=== PATIENT | male | born 1955 | race Caucasian/White ===

== ENCOUNTER 2024-06-14 16:32 | Inpatient (IN) | payer MEDICARE ==
[~2024-06-14] VITALS: Ht 180.3 cm; Wt 96.6 kg
[2024-06-14] MEDS ORDERED: DOCUSATE SODIUM 283 MG/5 ML MINI-ENEMA PR PRN (20:00)
[2024-06-14] MEDS ORDERED: DEXTROSE 50%-WATER 25 GM/50 ML SYRINGE IVP PRN (20:30)
[2024-06-14] MEDS ORDERED: INSULIN LISPRO 100 UNITS/ML SQ PRN (20:30)
[2024-06-14 21:00] VITALS: BP 156/85; PULSE 78; RESP 19; TEMP 98.3; O2SAT 93; O2SAT 98
[2024-06-14] MEDS: DOCUSATE SODIUM 100 MG CAPSULE PO SCH (21:02)
[2024-06-14] MEDS: ATORVASTATIN CALCIUM 40 MG TABLET PO SCH (21:02)
[2024-06-14] MEDS: SENNOSIDES 8.6 MG TABLET PO SCH (21:02)
[2024-06-14] MEDS: TAMSULOSIN HCL 0.4 MG CAPSULE PO SCH (21:03)
[2024-06-14] MEDS: ACETAMINOPHEN 325 MG TABLET PO PRN (21:03)
[2024-06-14 22:03] VITALS: BP 136/81; PULSE 72
[2024-06-14 22:30] LABS: GLUCOMETER DEV NAME(LOC) 2WR.2B; GLUCOSE,POINT OF CARE 98 MG/DL (70-110)
[2024-06-15 06:41] LABS: GLUCOMETER DEV NAME(LOC) 2WR.1D; GLUCOSE,POINT OF CARE 135 MG/DL (70-110)
[2024-06-15] MEDS: ETHYL ALCOHOL 62% ANTISEPTIC NASAL SANITIZER 0.6 ML AMPUL NASAL SCH (07:32)
[2024-06-15] MEDS: EZETIMIBE 10 MG TABLET PO SCH (07:32)
[2024-06-15] MEDS: SitaGLIPtin PHOSPHATE 100 MG TABLET PO SCH (07:33)
[2024-06-15] MEDS: ENOXAPARIN SODIUM 40 MG/0.4 ML PF SYRINGE SQ SCH (07:33)
[2024-06-15] MEDS: ASPIRIN 81 MG CHEWABLE TABLET PO SCH (07:33)
[2024-06-15 08:05] VITALS: BP 147/79; PULSE 72; RESP 18; TEMP 97.6
[2024-06-15 10:25] LABS: BASOPHILS % (AUTO) 0.7 % (0.0-2.0); EOSINOPHILS % (AUTO) 0.9 % (1.0-6.0); HEMATOCRIT 43.5 % (41-53); HEMOGLOBIN 14.7 g/dL (13.5-17.5); LYMPHOCYTES # (AUTO) 1.7 K/uL (1.0-4.8); LYMPHOCYTES % (AUTO) 16.7 % (22.0-44.0); MEAN CORPUSCULAR HEMOGLOBIN 27.2 pg (26.0-34.0); MEAN CORPUSCULAR HGB CONC 33.7 G/dL (31.0-37.0); MEAN CORPUSCULAR VOLUME 81 fL (80-100); MONOCYTES % (AUTO) 9.3 % (2.0-9.0); NEUTROPHILS # (AUTO) 7.5 K/uL (1.8-7.7); NEUTROPHILS % (AUTO) 72.4 % (40.0-70.0); PLATELET COUNT (AUTO) 260 K/uL (150-450); RED BLOOD CELL COUNT(AUTO) 5.38 MIL/uL (4.50-5.90); RED CELL DISTRIBUTION WIDTH 16.5 % (11.5-14.5); WHITE BLOOD COUNT (AUTO) 10.4 K/uL (4.5-11.0)
[2024-06-15 10:50] LABS: ALANINE AMINOTRANSFERASE 33 U/L (12-78); ALBUMIN 3.9 g/dL (3.4-5.0); ALKALINE PHOSPHATASE 64 U/L (46-116); ANION GAP 10 mmol/L (8-16); ASPARTATE AMINOTRANSFERASE 19 U/L (15-37); BILIRUBIN,TOTAL 0.6 mg/dL (0.1-1.0); CALCIUM, TOTAL 8.7 mg/dL (8.8-10.5); CARBON DIOXIDE 26 mmol/L (22-29); CHLORIDE 100 mmol/L (98-107); CREATININE 1.14 mg/dL (0.60-1.30); GLOMERULAR FILTR. RATE CALC > 60 mL/min (>60); GLUCOSE,RANDOM 117 mg/dL (70-110); POTASSIUM 4.3 mmol/L (3.5-5.1); SODIUM SERUM 136 mmol/L (136-145); TOTAL PROTEIN, SERUM 7.4 g/dL (6.4-8.2); UREA NITROGEN, BLOOD 19 mg/dL (7-18)
[2024-06-15 11:00] VITALS: BP 136/73; PULSE 80; RESP 18; TEMP 98.2
[2024-06-15 11:40] VITALS: O2SAT 98
[2024-06-15 17:15] LABS: GLUCOMETER DEV NAME(LOC) 2WR.2B; GLUCOSE,POINT OF CARE 105 MG/DL (70-110)
[2024-06-15 19:58] VITALS: BP 148/78; PULSE 73; RESP 18; TEMP 97.9; O2SAT 95
[2024-06-15] MEDS: MELATONIN 3 MG TABLET PO PRN (20:04)
[2024-06-15 22:48] VITALS: O2SAT 95
[2024-06-16 07:26] LABS: GLUCOMETER DEV NAME(LOC) 2WR.2B; GLUCOSE,POINT OF CARE 117 MG/DL (70-110)
[2024-06-16 08:05] VITALS: BP 133/70; PULSE 78; RESP 18; TEMP 98.2; O2SAT 98
[2024-06-16 08:37] VITALS: O2SAT 98
[2024-06-16 11:00] VITALS: BP 138/74; PULSE 80; RESP 18; TEMP 98; O2SAT 97
[2024-06-16 16:10] LABS: GLUCOMETER DEV NAME(LOC) 2WR.2B; GLUCOSE,POINT OF CARE 109 MG/DL (70-110)
[2024-06-16 20:38] VITALS: BP 154/82; PULSE 66; RESP 18; TEMP 97.5; O2SAT 96
[2024-06-16 21:23] VITALS: O2SAT 96
[2024-06-17 07:40] LABS: GLUCOMETER DEV NAME(LOC) 2WR.1D; GLUCOSE,POINT OF CARE 109 MG/DL (70-110)
[2024-06-17 08:05] VITALS: BP 126/71; PULSE 76; RESP 18; TEMP 98.2; O2SAT 98
[2024-06-17 09:36] VITALS: O2SAT 98
[2024-06-17 11:30] VITALS: BP 130/72; PULSE 70; RESP 18; TEMP 98; O2SAT 98
[2024-06-17] MEDS ORDERED: SENN-376 PO (16:54)
[2024-06-17] MEDS ORDERED: TAMS0.4C94 PO (16:54)
[2024-06-17] MEDS ORDERED: SITA100 PO (16:54)
[2024-06-17 17:06] LABS: GLUCOMETER DEV NAME(LOC) 2WR.1D; GLUCOSE,POINT OF CARE 110 MG/DL (70-110)
[2024-06-17 20:00] VITALS: BP 137/79; PULSE 73; RESP 19; TEMP 97.2; O2SAT 98
[2024-06-18 07:16] LABS: GLUCOMETER DEV NAME(LOC) 2WR.1D; GLUCOSE,POINT OF CARE 119 MG/DL (70-110)
[2024-06-18 08:30] VITALS: BP 134/84; PULSE 74; RESP 18; TEMP 97.9; O2SAT 96
[2024-06-18 11:45] VITALS: O2SAT 96
[2024-06-18 17:41] LABS: GLUCOMETER DEV NAME(LOC) 2WR.1D; GLUCOSE,POINT OF CARE 101 MG/DL (70-110)
[2024-06-18 20:00] VITALS: BP 144/71; PULSE 76; RESP 20; TEMP 98; O2SAT 98
[2024-06-19] MEDS: PNEUMOCOCCAL VACCINE POLYVALENT 0.5 ML SYRINGE [PPSV23] IM. ONE (07:07)
[2024-06-19 08:01] VITALS: BP 139/59; PULSE 76; RESP 19; TEMP 97.5; O2SAT 99
[2024-06-19 20:33] VITALS: BP 141/73; PULSE 81; RESP 18; TEMP 97.7; O2SAT 98
[2024-06-19 20:36] VITALS: O2SAT 98
[2024-06-20 08:05] VITALS: BP 134/72; PULSE 74; RESP 18; TEMP 98.1; O2SAT 98
[2024-06-20 09:15] VITALS: O2SAT 98
[2024-06-20 20:57] VITALS: BP 146/66; PULSE 69; RESP 18; TEMP 98.8; O2SAT 98
[2024-06-20 20:58] VITALS: O2SAT 98
[2024-06-21 08:00] VITALS: BP 129/67; PULSE 69; RESP 18; TEMP 97.9; O2SAT 97
[2024-06-21] MEDS: AmLODIPine BESYLATE 2.5 MG TABLET PO SCH (11:03)
[2024-06-21 20:00] VITALS: BP 154/77; PULSE 71; RESP 19; TEMP 97.6; O2SAT 98
[2024-06-22 08:30] VITALS: BP 141/68; PULSE 67; RESP 19; TEMP 97.9; O2SAT 97
[2024-06-22] MEDS: FLUoxetine HCL 10 MG CAPSULE PO SCH (12:21)
[2024-06-22] MEDS: SODIUM CHLORIDE 0.65% 44 ML NASAL SPRAY NASAL PRN (12:21)
[2024-06-22 20:00] VITALS: BP 153/94; PULSE 75; RESP 18; TEMP 97.7; O2SAT 97
[2024-06-22 22:24] VITALS: O2SAT 97
[2024-06-22 22:56] VITALS: BP 134/84; RESP 18; O2SAT 97
[2024-06-23 08:00] VITALS: BP 134/66; PULSE 64; RESP 19; TEMP 97.6; O2SAT 96
[2024-06-23 20:09] VITALS: BP 159/91; PULSE 84; RESP 18; TEMP 97.9; O2SAT 96
[2024-06-23 21:24] VITALS: O2SAT 96
[2024-06-24 08:00] VITALS: BP 145/86; PULSE 82; RESP 18; TEMP 97.4; O2SAT 98
[2024-06-24 20:00] VITALS: BP 147/80; PULSE 86; RESP 19; TEMP 97.3; O2SAT 97
[2024-06-24] MEDS: MELATONIN 3 MG TABLET PO PRN (20:43)
[2024-06-25] MEDS ORDERED: ASPI-1450 PO (05:07)
[2024-06-25] MEDS ORDERED: AMLO-257 PO (05:08)
[2024-06-25] MEDS ORDERED: FLUO-342 PO (05:10)
[2024-06-25] MEDS ORDERED: EZET10TA57 PO (05:11)
[2024-06-25] MEDS ORDERED: TAMS0.4C94 PO (05:13)
[2024-06-25] MEDS ORDERED: ATOR40TA28 PO (05:21)
[2024-06-25 08:00] VITALS: BP 138/79; PULSE 65; RESP 19; TEMP 97.6; O2SAT 97
[2024-06-25] MEDS: AmLODIPine BESYLATE 5 MG TABLET PO SCH (08:39)
[2024-06-25 20:35] VITALS: BP 140/78; PULSE 80; RESP 19; TEMP 97.4; O2SAT 98
[2024-06-25] MEDS: GABAPENTIN 300 MG CAPSULE PO SCH (20:40)
[2024-06-26 08:00] VITALS: BP 143/79; PULSE 74; RESP 19; TEMP 97.7; O2SAT 98
[2024-06-26 20:00] VITALS: BP 148/72; PULSE 76; RESP 18; TEMP 97.8; O2SAT 98
[2024-06-27 08:00] VITALS: BP 136/71; PULSE 67; RESP 19; TEMP 97.9; O2SAT 98
[2024-06-27 20:00] VITALS: BP 144/72; PULSE 68; RESP 20; TEMP 97.8; O2SAT 100
[2024-06-28 07:30] VITALS: BP 123/70; PULSE 63; RESP 19; TEMP 98; O2SAT 96
[2024-06-28 08:22] VITALS: O2SAT 96
[2024-06-28 08:23] VITALS: O2SAT 96
[2024-06-28 08:23] LABS: EOSINOPHILS % (AUTO) 2.3 % (1.0-6.0); HEMATOCRIT 40.8 % (41-53); LYMPHOCYTES # (AUTO) 1.7 K/uL (1.0-4.8); LYMPHOCYTES % (AUTO) 19.4 % (22.0-44.0); MEAN CORPUSCULAR HEMOGLOBIN 27.9 pg (26.0-34.0); MEAN CORPUSCULAR HGB CONC 34.3 G/dL (31.0-37.0); MEAN CORPUSCULAR VOLUME 81 fL (80-100); MONOCYTES # (AUTO) 0.9 K/uL (0.1-1.0); NEUTROPHILS % (AUTO) 67.3 % (40.0-70.0); PLATELET COUNT (AUTO) 266 K/uL (150-450); RED BLOOD CELL COUNT(AUTO) 5.03 MIL/uL (4.50-5.90); RED CELL DISTRIBUTION WIDTH 15.4 % (11.5-14.5); WHITE BLOOD COUNT (AUTO) 8.9 K/uL (4.5-11.0)
[2024-06-28 08:37] LABS: ALBUMIN 3.6 g/dL (3.4-5.0); BILIRUBIN,TOTAL 0.5 mg/dL (0.1-1.0); CALCIUM, TOTAL 8.4 mg/dL (8.8-10.5); CREATININE 1.22 mg/dL (0.60-1.30); POTASSIUM 4.2 mmol/L (3.5-5.1)
[2024-06-28 20:00] VITALS: BP 150/69; PULSE 66; RESP 18; TEMP 97.7; O2SAT 96; O2SAT 97
[2024-06-29 07:35] VITALS: BP 117/69; PULSE 57; RESP 19; TEMP 98; O2SAT 99
[2024-06-29 08:33] VITALS: O2SAT 99
[2024-06-29 20:00] VITALS: BP 132/80; PULSE 66; RESP 18; TEMP 97.9; O2SAT 99
[2024-06-30 08:00] VITALS: BP 130/74; PULSE 62; RESP 19; TEMP 98; O2SAT 98
[2024-06-30 20:00] VITALS: BP 130/70; PULSE 68; RESP 18; TEMP 97.5; O2SAT 97
[2024-06-30] MEDS: TAMSULOSIN HCL 0.4 MG CAPSULE PO SCH (21:04)
[2024-07-01 08:05] VITALS: BP 119/69; PULSE 68; RESP 18; TEMP 98.3; O2SAT 98
[2024-07-01 09:21] VITALS: O2SAT 98
[2024-07-01] MEDS ORDERED: DOCU-385 PO (11:15)
[2024-07-01] MEDS ORDERED: EZET10TA57 PO (11:15)
[2024-07-01] MEDS ORDERED: SITA100 PO (11:15)
[2024-07-01] MEDS ORDERED: ATOR40TA71 PO (11:15)
[2024-07-01] MEDS ORDERED: GABA-1181 PO (11:15)
[2024-07-01] MEDS ORDERED: TAMS0.4C94 PO (11:15)
[2024-07-01] MEDS ORDERED: AMLO-257 PO (11:15)
[2024-07-01] MEDS ORDERED: ASPI-1450 PO (11:15)
[2024-07-01] MEDS ORDERED: FLUO-341 PO (11:15)
== END 2024-07-01 14:00 | disposition home or self-care (01) | DRG 65 ==
LOC: 2WR 19:50
PROVIDERS: ADMIT Physical Medicine & Rehabilitation; ATTEND Physical Medicine & Rehabilitation
DX: I63.29 Cerebral infarction due to unspecified occlusion or stenosis of other precerebral arteries (principal); G81.91 Hemiplegia, unspecified affecting right dominant side; I10 Essential (primary) hypertension; N40.0 Benign prostatic hyperplasia without lower urinary tract symptoms; R29.702 NIHSS score 2; R73.03 Prediabetes; Z74.09 Other reduced mobility; Z87.891 Personal history of nicotine dependence; G47.33 Obstructive sleep apnea (adult) (pediatric); F43.20 Adjustment disorder, unspecified; E78.5 Hyperlipidemia, unspecified; E66.9 Obesity, unspecified; F43.22 Adjustment disorder with anxiety; F32.A Depression, unspecified; R41.89 Other symptoms and signs involving cognitive functions and awareness; R47.1 Dysarthria and anarthria; R53.1 Weakness; Z68.29 Body mass index [BMI] 29.0-29.9, adult; Z79.899 Other long term (current) drug therapy; Z79.82 Long term (current) use of aspirin
CPT/HCPCS: 80053; 82962; 85025; 87081; 90732; 92507; 92523; 92526; 92610; 97110; 97112; 97116; 97163; 97167; 97530; 97535; 99366; J1650